=== PATIENT | male | born 1965 | race Caucasian/White ===

== ENCOUNTER 2017-03-27 04:06 | Inpatient (IN) | payer OTHER ==
[2017-03-27] VITALS (7 sets, daily range): BP systolic 101–162; BP diastolic 61–83
[~2017-03-27] VITALS: Ht 195.6 cm; Wt 147.9 kg
[~2017-03-27 04:06] MED LIST: AMLODIPINE BESYL5 MG PO; ASPIR 8181 MG PO; Aspirin PO; BACTROBAN15 GM TOP; CORDARONE200 MG PO; CRESTOR10 MG PO; DOXYCYCLINE HY100 MG PO; FUROSEMIDE40 MG PO; Furosemide PO; GLIMEPIRIDE2 MG; LIPITOR20 MG PO; LISINOPRIL10 MG PO; LOPRESSOR25 MG PO; Lorazepam PO; METOPROLOL TART25 MG PO; METOPROLOL TART50 MG PO; NITRO-BID1 GM TOP; NITROGLYCERIN0.4 MG SL; NITROSTAT0.4 MG SL; PROTONIX40 MG/ML PO; Potassium Chloride PO; SANTYL15 GM TP; TAMSULOSIN HCL0.4 MG PO; XARELTO10 MG PO; Z.0.CLINDAMYCIN HC30; Z.0.CLINDAMYCIN HC30 PO; Z.0.HYDROCHLOROTHIA2; Z.0.LORTAB 7.5-5001 PO; Z.0.SEPTRA DS TABL1 PO
[2017-03-27 04:51] LABS: BASOPHILS % 0.7 % (0.0-1.0); EOSINOPHILS # (AUTO) 0.3 (0.0-0.4); EOSINOPHILS % 5.4 % (0.0-6.0); HEMATOCRIT 33.4 % (38.2-49.6); HEMOGLOBIN 10.5 g/dL (14.0-18.0); LYMPHOCYTES # (AUTO) 0.9 (1.0-3.2); LYMPHOCYTES % 15.8 % (18.0-39.1); MEAN CORPUSCULAR HEMOGLOBIN 25.8 pg (28-32); MEAN CORPUSCULAR HGB CONC 31.4 g/dL (31-35); MEAN CORPUSCULAR VOLUME 82.1 fL (81-99); MONOCYTES # (AUTO) 0.8 (0.2-0.8); MONOCYTES % 15.2 % (4.4-11.3); NEUTROPHILS # (AUTO) 3.4 (2.1-6.9); NEUTROPHILS % 62.4 % (38.7-80.0); PLATELET COUNT 282 x10e3/uL (140-360); RED BLOOD COUNT 4.07 x10e6/uL (4.3-5.7); RED CELL DISTRIBUTION WIDTH 18.8 % (11.7-14.4)
[2017-03-27 05:00] LABS: INR 1.23; PARTIAL THROMBOPLASTIN TIME 32.4 seconds (23.8-35.5); PROTHROMBIN TIME 16.1 seconds (11.9-14.5)
[2017-03-27 05:10] LABS: ALBUMIN 3.7 g/dL (3.5-5.0); ALBUMIN/GLOBULIN RATIO 1.1 (0.8-2.0); ANION GAP 15.5 mmol/L (8-16); CALCIUM 8.5 mg/dL (8.4-10.2); CREATININE, SERUM 2.79 mg/dL (0.72-1.25); MAGNESIUM 2.2 MG/DL (1.3-2.1); POTASSIUM 4.5 mmol/L (3.5-5.1)
[2017-03-27 05:30] LABS: CREATINE KINASE MB 4.7 ng/mL (0.00-5.00); THYROID STIMULATING HORMONE 3.699 uIU/mL (0.350-4.940); TROPONIN I 0.008 ng/mL (0-0.300)
[2017-03-27] MEDS ORDERED: SODIUM CHLORIDE 0.9% 500ML 500 ML IV ONE (06:00)
--- NOTE | 2017-03-27 06:27 | Diagnostic Imaging Report ---
History: Fell in shower Comparison studies:None Technique: Axial images were obtained from the brain, face and cervical spine. Coronal and sagittal reconstructions obtained from the axial data. Intravenous contrast: None Findings: Head CT: Scalp/skull: No abnormalities. No fractures, blastic or lytic lesions. Extra-axial spaces: No masses. No fluid collections. Brain sulci: Appropriate for age. Ventricles: Normal in size and configuration. No hydrocephalus. Parenchyma: No abnormal densities. No masses, hemorrhage, acute or chronic cortical vascular insults. Sellar/suprasellar region: No abnormalities Craniocervical junction: Patent foramen magnum. No Chiari one malformation. Opacification of the bilateral left more than right mastoid air cells. Maxillofacial CT: Soft tissues: No abnormalities.. Bones: No fractures or bony abnormalities. . Orbits: No abnormalities. Paranasal sinuses: Clear. Cervical spine CT: Fractures: None. Soft tissues: No gross abnormalities. Atlantoaxial articulation: Intact. Alignment: Normal lordosis. No scoliosis. Cervicomedullary junction: No abnormalities. The foramen magnum is patent. Vertebrae: No infection or neoplasm. Degenerative changes: Patent canal and foramina. Incidental findings: none. Impression: Head CT: 1. No acute abnormality. 2. Nonspecific opacification of the left more than right mastoid air cells . Facial CT: 1. No acute abnormality. Cervical spine CT: 1. No cervical abnormalities. 2. Cannot exclude ligament, spinal cord and or vascular abnormalities on the basis of this examination. Signed by: DR Arash Logan M.D. on 03/27/2017 6:24 AM
--- NOTE | 2017-03-27 06:48 | Diagnostic Imaging Report ---
EXAMINATION: CHEST SINGLE (PORTABLE) INDICATION: Status post fall, syncope COMPARISON: None FINDINGS: TUBES and LINES: None. LUNGS: Lungs are well inflated. Lungs are clear. There is no evidence of pneumonia or pulmonary edema. PLEURA: No pleural effusion or pneumothorax. HEART AND MEDIASTINUM: The cardiomediastinal silhouette is unremarkable. BONES AND SOFT TISSUES: No acute osseous lesion. Postsurgical changes related to prior resection of the lateral right clavicle. Soft tissues are unremarkable. UPPER ABDOMEN: No free air under the diaphragm. IMPRESSION: No acute thoracic abnormality. Signed by: Dr. Facundo Ward M.D. on 03/27/2017 6:45 AM
--- NOTE | 2017-03-27 06:48 | Diagnostic Imaging Report ---
PELVIS AP 1-2 VIEWS HISTORY: Status post fall, pain COMPARISON: None FINDINGS: Bones: No displaced fracture. Osseous alignment is within normal limits. Joints: The joint spaces are well-maintained. Soft tissues: The soft tissues appear unremarkable. IMPRESSION: No acute radiographic abnormality. Signed by: Dr. Facundo Ward M.D. on 03/27/2017 6:45 AM
--- NOTE | 2017-03-27 06:50 | Diagnostic Imaging Report ---
FEMUR 2 VIEWS MINIMUM LEFT HISTORY: Status post fall, left side pain COMPARISON: None FINDINGS: Bones: No displaced fracture. Osseous alignment is within normal limits. Joints: There are calcifications in the distribution of the menisci compatible with CPPD arthropathy. Soft tissues: Soft tissue calcifications in the left gluteal region and muscular structures of the left thigh. IMPRESSION: 1. CPPD arthropathy of the left knee. 2. No acute osseous abnormalities. Signed by: Dr. Facundo Ward M.D. on 03/27/2017 6:46 AM
[2017-03-27] MEDS ORDERED: SODIUM CHLORIDE 0.9% 1000ML 1,000 ML ONE (07:44)
[2017-03-27] MEDS ORDERED: SODIUM CHLORIDE 0.9% 1000ML 1,000 ML IV ONE (07:45)
[2017-03-27 07:54] LABS: BILIRUBIN,URINE NEGATIVE (NEGATIVE); CLARITY,URINE CLEAR (CLEAR); COLOR,URINE YELLOW (YELLOW); KETONES,URINE NEGATIVE (NEGATIVE); LEUKOCYTE ESTERASE ,URINE NEGATIVE (NEGATIVE); NITRITE,URINE NEGATIVE (NEGATIVE); PROTEIN,URINE DIPSTICK NEGATIVE (NEGATIVE); URINE UROBILINOGEN 0.2 mg/dL (0.2 - 1)
[2017-03-27] MEDS ORDERED: ONDANSETRON HCL INJ 2 MG/ML VIAL IV PRN (08:30)
[2017-03-27] MEDS ORDERED: DEXTROSE 50% SYRINGE 50 ML IV PRN (08:30)
[2017-03-27] MEDS: CEPHALEXIN 500 MG CAP PO SCH ×3 (09:09→21:19)
[2017-03-27] MEDS: FAMOTIDINE 20 MG/2 ML VIAL IV SCH ×2 (09:09→21:19)
[2017-03-27] MEDS: SODIUM CHLORIDE 0.9% 1000ML 1,000 ML IV SCH ×2 (09:09→18:01)
--- NOTE | 2017-03-27 10:05 | History and Physical ---
PRIMARY CARE PHYSICIAN: Dr. Feldman CHIEF COMPLAINT: Near passing out with leg trauma and facial trauma. HISTORY OF PRESENT ILLNESS: This is a 52-year-old man with a history of syncopal episode in September 2016, who underwent echocardiogram and stress test. At that time, he stated that it was negative. Dr. Oviedo assisted in management at that time. Patient has been having problems with tremors and periods of tremulousness. Has been evaluated by Dr. Jackson. Had an in-home 72-hour EEG monitoring. Results of that are still pending. Patient has also been managed by Dr. Gonzales of nephrology. Patient recently had his Bumex doubled in dose due to leg edema. Amlodipine was stopped at that time. Now, the patient had been having tremors per his who is at his bedside now. Last night he got out of bed while still apparently having a vivid dream. Went to the bathroom, fell and injured his left leg on a drawer and hit his face. Was brought into the hospital. He did not pass out at that time. The trauma led to him waking up from this vivid dream per his . Currently, the patient denies any chest pain or shortness of breath. States that he was ruled out for Parkinson disease in the fall by Dr. Jackson. Further workup is still being done to determine the etiology of his intermittent tremors and vivid dreams. His systolic blood pressure has been as low as 80 in the office setting. PAST MEDICAL HISTORY: Chronic kidney disease, stage 3, myocardial infarction without any stent placement, atrial flutter, status post ablation times 2, vivid dreams, hypertension, hyperlipidemia, urinary tract infection, aortic stenosis, mitral valve vegetation with normal white blood cell count, paroxysmal atrial fibrillation, chronic venous stasis dermatitis. PAST SURGICAL HISTORY: Right shoulder times 10, left shoulder times 5, bilateral knee surgery times 2, hand surgery. ALLERGIES: PER ELECTRONIC MEDICAL RECORD. FAMILY HISTORY/SOCIAL HISTORY: Patient is . He has no children. Occasional alcohol. No cigarettes or illicits. MEDICATIONS: Per electronic medical records. REVIEW OF SYSTEMS: Denies any dizziness or chest pain. PHYSICAL EXAMINATION VITAL SIGNS: Temperature 97.8, pulse 68, blood pressure 94/93, respiratory rate 18, and oxygen 100%. GENERAL: A tired-appearing man resting in bed. HEENT: Anicteric. CARDIOVASCULAR: Normal S1 and S2. Appears to be a 2/6 systolic murmur. LUNGS: Good aeration. No wheezing. ABDOMEN: Soft, nontender and nondistended. EXTREMITIES: Left thigh with dressing in place. He has a horizontal wound in the thigh, which has been sutured and dressed. Trace edema. SKIN: Dry. PSYCHIATRIC: Flat affect. NEUROLOGICAL: He is alert and oriented times 3. Moves all extremities. LABS: Reviewed. MEDICATIONS: Reviewed. ASSESSMENT AND PLAN: A 52-year-old man with: 1. Presyncope/hypotension: He received 1 L bolus of saline. May need his diuretics to be reduced at home. Blood pressure was as low as 68/45, and now it has improved to 101/60. Will obtain carotid ultrasound. 2. Vivid dreams: This workup is ongoing. Will need to follow with Dr. Jackson outpatient. In the meantime, will treat him symptomatically here. 3. Acute kidney injury in the setting of chronic kidney disease, stage 3: Rehydrate the patient and reassess. Reassess labs later today. Will consult Dr. Gonzales of nephrology. 4. Hyponatremia: May be the etiology of some of his symptoms today. He has been rehydrated. Will reassess labs later today. 5. Elevated AST: Patient admits to some alcohol use, but not much. Alcohol use may need to be re-evaluated. 6. Elevated CPK representing mild acute rhabdomyolysis: Rehydrate and will reassess tomorrow. 7. Left leg wound: This has been sutured and dressed. Continue local wound care. 8. Physical deconditioning: Will get physical therapy on board. 9. Paroxysmal atrial fibrillation: He remains on amiodarone and beta blockade. Will hold the beta tate for now. Will hold amiodarone for now until his blood pressure improves. Will resume Xarelto tomorrow. Will obtain lipid panel. 10. Prophylaxis: Use sequential compression devices. Will resume Xarelto tomorrow. Use Pepcid. 11. Disposition: Physical therapy consultation. Job#: [id number] [place]
[2017-03-27] MEDS: INSULIN REGULAR, HUMAN 100 UNIT/1 ML 3ML VIAL SQ SCH ×3 (11:30→20:51)
--- NOTE | 2017-03-27 13:51 | Consultation ---
DATE OF CONSULTATION: March 27, 2017 CARDIOLOGY CONSULTATION REQUESTING PHYSICIAN: Dr. Maya. REASON FOR CONSULT: History of fall. HISTORY OF PRESENTING ILLNESS: Mr. Avila is a 52-year-old gentleman with past medical history as listed below, apparently was walking from his bedroom to the bathroom at night when he suddenly fell down at the knob of a door and, so, decided to come to the hospital. He states he did not lose total consciousness. He states he has been sleepwalking quite frequently. He apparently cut his left thigh and hit his head. There was no chest pain, shortness of breath or palpitation before the episode or right after the episode. There was no seizure activity. Reportedly his blood pressure has been running low recently, and his renal physician has stopped one of his medications. REVIEW OF SYMPTOMS CONSTITUTIONAL: Has some fatigue and weakness. HEENT: Has headache. No blurring of vision, seizures. Questionable syncope. CARDIOVASCULAR: No chest pain. Gets exertional dyspnea. No orthopnea or PND. RESPIRATORY: No cough, fever or expectoration. GI: No abdominal pain, vomiting, diarrhea. : No dysuria, frequency, incontinence. ALLERGIES: SEE LIST. MEDICATIONS: See list. PAST MEDICAL HISTORY 1. History of hypertension. 2. History of MS. Has had cardiac catheterization. No significant stenosis. 3. History of CKD. 4. History of hyperlipidemia. 5. History of atrial fibrillation. Has undergone ablation by Dr. Moctezuma. 6. History of essential tremor. SOCIAL HISTORY: Does not smoke or drink. FAMILY HISTORY: Noncontributory. PHYSICAL EXAMINATION GENERAL: Obese gentleman, alert, oriented, not in any obvious distress. VITAL SIGNS: Heart rate is 77. Blood pressure 117/69. Respiratory rate 16. Temperature is 96.9. HEENT: Atraumatic. NECK: No JVD, bruit, thyromegaly, lymphadenopathy. CARDIOVASCULAR: First and second heart sounds heard. No murmurs, rubs or gallops were appreciated. CHEST: Decreased air entry at the bases. No adventitious sounds appreciated. ABDOMINAL: Obese, nontender. EXTREMITIES: No edema. LABS Chest x-ray: No acute changes. X-ray of pelvis and left femur: Negative. CT face, spine and head: Negative. WBC is 5.5, hemoglobin 10.5, hematocrit 33.4. Sodium 124, chloride 92, bicarb 21, creatinine is 2.7. CK is 543. EKG shows sinus rhythm at 68 beats per minute, normal axis, incomplete left bundle branch block, 1st-degree AV block. IMPRESSION 1. History of fall, questionable syncope. 1. History of hypotension. 2. History of atrial fibrillation, has undergone ablation. 3. Chronic kidney disease. 4. History of hyperlipidemia. 5. History of essential tremor. 6. Elevated creatine phosphokinase, probably secondary to muscle injury. PLAN 1. Patient reportedly sleepwalks, also his blood pressure has been running low. Possible that patient could have had orthostatic hypotensive episode. 2. Will start him on low-dose midodrine. 3. Get echocardiogram to assess LV function and valvular function. 4. Carotid Doppler to rule out significant stenosis. 5. Hold off on diuretics for now. 6. Further cardiac workup depending on clinical course. I have discussed my impression and plan of management with the patient, and he understands it. As always, appreciate and thank you very much for your referrals. Job#: [id number] [place]
[2017-03-27] MEDS: FAMOTIDINE 20 MG TAB PO SCH (16:28)
[2017-03-27 19:11] LABS: ALBUMIN 3.7 g/dL (3.5-5.0); ALBUMIN/GLOBULIN RATIO 1.2 (0.8-2.0); ANION GAP 14.2 mmol/L (8-16); CALCIUM 8.3 mg/dL (8.4-10.2); CREATININE, SERUM 2.64 mg/dL (0.72-1.25); POTASSIUM 4.2 mmol/L (3.5-5.1)
[2017-03-27 19:17] LABS: CREATINE KINASE MB 4.7 ng/mL (0.00-5.00); TROPONIN I 0.007 ng/mL (0-0.300)
[2017-03-27] MEDS: ZOLPIDEM TARTRATE 5 MG TAB PO PRN (21:19)
[2017-03-27] MEDS: SIMVASTATIN 20 MG TAB PO SCH (21:19)
[2017-03-28] VITALS (12 sets, daily range): BP systolic 110–159; BP diastolic 58–85
[2017-03-28] MEDS: CEPHALEXIN 500 MG CAP PO SCH ×3 (05:16→21:17)
[2017-03-28 07:07] LABS: BASOPHILS % 0.4 % (0.0-1.0); EOSINOPHILS # (AUTO) 0.2 (0.0-0.4); HEMATOCRIT 35.3 % (38.2-49.6); LYMPHOCYTES # (AUTO) 0.7 (1.0-3.2); LYMPHOCYTES % 15.3 % (18.0-39.1); MEAN CORPUSCULAR HEMOGLOBIN 25.8 pg (28-32); MEAN CORPUSCULAR HGB CONC 31.2 g/dL (31-35); MEAN CORPUSCULAR VOLUME 82.9 fL (81-99); MONOCYTES # (AUTO) 0.7 (0.2-0.8); MONOCYTES % 15.1 % (4.4-11.3); NEUTROPHILS % 63.8 % (38.7-80.0); PLATELET COUNT 295 x10e3/uL (140-360); RED BLOOD COUNT 4.26 x10e6/uL (4.3-5.7)
[2017-03-28 07:38] LABS: ALBUMIN 3.6 g/dL (3.5-5.0); ALBUMIN/GLOBULIN RATIO 1.1 (0.8-2.0); ANION GAP 11.2 mmol/L (8-16); CALCIUM 8.6 mg/dL (8.4-10.2); CHOL/HDL RATIO 2.2 (3.9-4.7); CREATININE, SERUM 2.25 mg/dL (0.72-1.25); POTASSIUM 4.2 mmol/L (3.5-5.1)
[2017-03-28 07:44] LABS: CREATINE KINASE MB 4.2 ng/mL (0.00-5.00); TROPONIN I 0.013 ng/mL (0-0.300)
[2017-03-28] MEDS: SODIUM CHLORIDE 0.9% 1000ML 1,000 ML IV SCH (07:48)
[2017-03-28 08:03] LABS: BLOOD UREA NITROGEN 21 mg/dL (7-26); GLUCOSE 99 mg/dL (74-118); OSMOLALITY,SERUM 268 mOsm/kg (278-305); SODIUM 132 mmol/L (136-145)
[2017-03-28] MEDS: FAMOTIDINE 20 MG/2 ML VIAL IV SCH (08:25)
[2017-03-28] MEDS: FAMOTIDINE 20 MG TAB PO SCH ×2 (08:32→16:29)
[2017-03-28] MEDS: ACETAMINOPHEN/CODEINE 300MG - 30MG TAB PO PRN ×4 (08:32→20:26)
--- NOTE | 2017-03-28 11:00 | Diagnostic Imaging Report ---
PROCEDURE:US RETROPERITONEAL ( KIDNEY ). COMPARISON:None. INDICATIONS:CKD TECHNIQUE: Santiago-scale and color sonographic images of the bilateral kidneys and bladder where obtained in transverse and longitudinal planes. FINDINGS: RIGHT KIDNEY: 10.8 cm in length, cortical thickness 2.3 cm Cysts: None Solid masses: None Stones: None Hydronephrosis: None Echogenicity: Normal renal cortical echogenicity. LEFT KIDNEY: 11.8 cm in length, cortical thickness 2.1 cm Cysts: None Solid masses: None Stones: None Hydronephrosis: None Echogenicity: Normal renal cortical echogenicity. Bladder: Unremarkable. Right and left ureteral jets are identified. Prostate: 2.5 x 2.6 x 3.4 cm. Estimated volume 11.8 cc Incidental note of a small splenule adjacent to the spleen, measuring 1.8 cm in diameter. CONCLUSION: Unremarkable sonographic appearance of the kidneys. Dictated by: Gary Dye M.D. on 03/28/2017 at 11:09 Electronically approved by: Gary Dye M.D. on 03/28/2017 at 11:09
--- NOTE | 2017-03-28 14:33 | Consultation ---
DATE OF CONSULTATION: March 28, 2017 ATTENDING PHYSICIAN: Jace Maya MD REASON FOR CONSULTATION: Acute kidney injury. Thank you very much for allowing me to participate in Mr. Avila' care. This is a 52-year-old male with history of CKD-3, who also has some issues with right heart failure, possibly venous stasis. More recently was told to cut down his amlodipine and increase his diuretics. Apparently, he came in after possibly falling sleepwalking getting a laceration on his thigh. It has also been noted that his blood pressure has been lower lately. He is feeling better now. He got some IV fluids here. Creatinine was 2.6, down to 2.3. Without diuresis, his creatinine tends to run around 1.7 to 1.8. PAST HISTORY 1. CKD-3. 2. Chronic edema. 3. Myocardial infarction. 4. History of atrial flutter. 5. Hypertension. 6. Aortic stenosis in the past. 7. Possible venous insufficiency. HOME MEDICATIONS: Please see list. Currently off his amlodipine and Bumex. ALLERGIES: Please see list. FAMILY HISTORY: No kidney problems. REVIEW OF SYSTEMS CONSTITUTIONAL: Currently feeling better. Denied fever or chills. CARDIAC: Denying angina, syncope, palpitations. GI: Denying nausea or vomiting. SKIN: A few lacerations on the leg. NEURO: Denying headache or seizures at this point. He was sleepwalking earlier. REST OF REVIEW: Negative. PHYSICAL EXAMINATION GENERAL: Sitting up in no distress. VITALS: Temperature 96.6, pulse 87, blood pressure 114/58. O2 sat is 98%. HEENT: Grossly atraumatic. NECK: No JVD. CHEST: Clear. Bilateral breath sounds are equal. CARDIAC: Normal heart tones. At this point, sounds regular. EXTREMITIES: Trace edema. SKIN: A few lacerations. The left leg is covered in a bandage. NEURO: Alert and appropriate. LABS: Creatinine 2.3, sodium 133, serum CO2 26, BUN 21. UA showed bland urine. Hemoglobin 11. ASSESSMENT 1. Acute kidney injury, mostly likely hemodynamic in nature from diuresis. 2. Tendency to fluid overload. 3. Probable intravascular volume depletion. PLAN 1. Keep salt and water restricted. Currently, I think he is getting close to euvolemic as far as vacular space goes. Will stop the IV fluids. Gradually introduce Lasix as they are concerned the Bumex even at its lowest dose may be a bit much for him. 2. Keep salt and water restricted. This is probably the most important measure that he can take. We will request cardiology to look at his venous system. 3. Avoid NSAIDs and other nephrotoxins. 4. Keep fluid restricted. Thank you for allowing us to participate in Mr. Avila' care. Job#: [id number]
[2017-03-28] MEDS: AMIODARONE HCL 200 MG TAB PO SCH (16:29)
[2017-03-28] MEDS ORDERED: RIVAROXABAN 20 MG TABLET PO SCH (17:00)
[2017-03-28] MEDS ORDERED: RIVAROXABAN 10 MG TABLET PO SCH (17:00)
[2017-03-28] MEDS: SIMVASTATIN 20 MG TAB PO SCH (20:20)
[2017-03-28] MEDS: ZOLPIDEM TARTRATE 5 MG TAB PO PRN (23:17)
[2017-03-29 04:00] VITALS: BP_SYST 121; BP_SYST 127; BP_SYST 145; BP_DIAS 72; BP_DIAS 76; BP_DIAS 83
[2017-03-29] MEDS: ACETAMINOPHEN/CODEINE 300MG - 30MG TAB PO PRN ×2 (04:36→11:07)
[2017-03-29] MEDS: CEPHALEXIN 500 MG CAP PO SCH (05:38)
[2017-03-29] MEDS ORDERED: FAMOTIDINE20 MG PO (06:34)
[2017-03-29] MEDS ORDERED: KEFLEX500 MG PO (06:34)
[2017-03-29 06:58] LABS: BASOPHILS % 0.8 % (0.0-1.0); EOSINOPHILS # (AUTO) 0.3 (0.0-0.4); EOSINOPHILS % 5.8 % (0.0-6.0); HEMATOCRIT 36.2 % (38.2-49.6); HEMOGLOBIN 11.3 g/dL (14.0-18.0); LYMPHOCYTES # (AUTO) 0.8 (1.0-3.2); LYMPHOCYTES % 15.8 % (18.0-39.1); MEAN CORPUSCULAR HGB CONC 31.2 g/dL (31-35); MEAN CORPUSCULAR VOLUME 83.2 fL (81-99); MONOCYTES # (AUTO) 0.8 (0.2-0.8); MONOCYTES % 16.2 % (4.4-11.3); NEUTROPHILS # (AUTO) 2.9 (2.1-6.9); PLATELET COUNT 294 x10e3/uL (140-360); RED BLOOD COUNT 4.35 x10e6/uL (4.3-5.7); RED CELL DISTRIBUTION WIDTH 19.2 % (11.7-14.4)
[2017-03-29 07:17] LABS: ALBUMIN 3.7 g/dL (3.5-5.0); ANION GAP 12.3 mmol/L (8-16); CALCIUM 8.8 mg/dL (8.4-10.2); CREATININE, SERUM 1.91 mg/dL (0.72-1.25); POTASSIUM 4.3 mmol/L (3.5-5.1)
[2017-03-29 08:03] VITALS: BP 160/83
[2017-03-29] MEDS: AMIODARONE HCL 200 MG TAB PO SCH (08:06)
[2017-03-29] MEDS: FAMOTIDINE 20 MG TAB PO SCH (08:06)
--- NOTE | 2017-03-29 08:17 | Progress Note ---
DATE: March 28, 2017 TIME: 7:30 a.m. OVERNIGHT: Feeling better. REVIEW OF SYSTEMS: Denies any dizziness. PHYSICAL EXAMINATION VITAL SIGNS: Reviewed. GENERAL: A tired-appearing man resting in bed. HEENT: Anicteric. CARDIOVASCULAR: Normal S1 and S2. LUNGS: Moderate breath sounds. ABDOMEN: Soft, nontender and nondistended. EXTREMITIES: He has left thigh with dressing in place. SKIN: Dry. PSYCHIATRIC: Flat affect. NEUROLOGICAL: Alert and oriented times 3. LABS: Reviewed. MEDICATIONS: Reviewed. ASSESSMENT AND PLAN: A 52-year-old man with: 1. Presyncope/hypotension: He received fluids. Beta tate has been stopped. Diuretics have been stopped. 2. Vivid dreams: Need to follow up outpatient with Dr. Jackson. 3. Acute kidney injury in the setting of chronic kidney disease, stage 3: Retest and re-evaluate. 4. Hyponatremia: Improving. 5. Elevated AST. 6. Elevated CPK likely due to acute rhabdomyolysis. 7. Acute rhabdomyolysis. 8. Left leg wound: Status post suture. Local wound care. 9. Physical deconditioning: Physical therapy. 10. Paroxysmal atrial fibrillation: Amiodarone. Beta tate has been stopped. 11. Prophylaxis: Sequential compression devices and Xarelto. 12. Disposition: Discharge planning. Job#: [id number] [place]
--- NOTE | 2017-03-29 08:27 | Discharge Summary ---
PRINCIPAL DIAGNOSES 1. Presyncope. 2. Hypotension secondary to beta tate and diuretics. 3. Vivid dreams. 4. Acute kidney injury in the setting of chronic kidney disease, stage 3. 5. Hyponatremia. 6. Elevated AST. 7. Elevated CPK with acute rhabdomyolysis. 8. Left leg wound, status post suturing and local wound care. 9. Physical deconditioning. 10. Paroxysmal atrial fibrillation. SECONDARY DIAGNOSIS: Paroxysmal atrial fibrillation. CHIEF COMPLAINT: Near passing out and injury to his leg. HISTORY OF PRESENT ILLNESS: A 52-year-old man who almost passed out. Refer to the H and P for further details. HOSPITAL COURSE: Patient had presyncopal event with hypotension. His beta tate has been stopped. His diuretics have been stopped. He had acute kidney injury in the setting of chronic kidney disease, stage 3. He received fluid boluses. Diuretics have been stopped. He had hyponatremia, which has improved. He had elevated AST and elevated CPK with acute rhabdomyolysis. Has been improving. Left leg wound secondary to injury in his bathroom. This has been sutured, and he has pain medications. He had local wound care. For physical deconditioning, he received physical therapy. Paroxysmal atrial fibrillation and he continues to receive amiodarone. Currently, appropriate for discharge and follow up. DISCHARGE MEDICATIONS: Per electronic medical records. FOLLOWUP 1. Primary care doctor in 1 week. 2. Follow up with Dr. Grove in 1 week. 3. Follow up with Dr. Oviedo in 2 weeks. CONDITION ON DISCHARGE: Stable and improving. DISCHARGE LOCATION: Home. MONICA RIOS MD Job#: [id number] [place]
[2017-03-29 08:32] VITALS: BP 160/83
[2017-03-29] MEDS ORDERED: TYLENOL WITH C1 EACH PO (11:34)
[2017-03-29] MEDS ORDERED: METOPROLOL TART50 MG PO (11:34)
[2017-03-29 12:00] VITALS: BP 141/88
--- NOTE | 2017-03-29 13:46 | Progress Note ---
DATE: March 29, 2017 NEPHROLOGY PROGRESS NOTE SUBJECTIVE: Feels okay. Minimal swelling. OBJECTIVE VITAL SIGNS: Temperature is 95.4, pulse 86, blood pressure 141/88. CHEST: Clear. EXTREMITIES: Trace edema. ABDOMEN: Benign. NEURO: Alert, appropriate. LABS: Show creatinine 1.9, which is close to his baseline. Serum CO2 27. Sodium was 134. ASSESSMENT: History of fluid overload, perhaps overdiuresed leading to acute kidney injury and underlying chronic kidney disease stage 3, presumed nephrosclerosis. PLAN: Limit salt strictly at home, limit fluid intake strictly at home. Start checking daily weights. There is some concern that the bumetanide might have been too strong of a diuretic for him even at its lowest dose. Will try furosemide 20 mg once a day. Outpatient prescription is sent. Check back with the renal office for labs in about 3 to 4 weeks. Call us if he tends to need the Lasix more than 40 mg a day. Will follow along. Sincerely, Job#: [id number] [place]
== END 2017-03-29 13:05 | disposition home or self-care (01) | DRG 312 ==
LOC: ER 04:06 → ERHOLD 08:53 → MED/SURG 09:15
PROVIDERS: ADMIT Internal Medicine; ATTEND Internal Medicine
PROC: 0JQM3ZZ Repair Left Upper Leg Subcutaneous Tissue and Fascia, Percutaneous Approach (ICD-10-PCS; principal; 2017-03-27)
DX: I95.1 Orthostatic hypotension (principal); N17.9 Acute kidney failure, unspecified; E87.1 Hypo-osmolality and hyponatremia; E87.70 Fluid overload, unspecified; M62.82 Rhabdomyolysis; I13.10 Hypertensive heart and chronic kidney disease without heart failure, with stage 1 through stage 4 chronic kidney disease, or unspecified chronic kidney disease; N18.3 Chronic kidney disease, stage 3 (moderate); E86.0 Dehydration; I48.0 Paroxysmal atrial fibrillation; R41.0 Disorientation, unspecified; I25.10 Atherosclerotic heart disease of native coronary artery without angina pectoris; S71.112A Laceration without foreign body, left thigh, initial encounter; W01.0XXA Fall on same level from slipping, tripping and stumbling without subsequent striking against object, initial encounter; Y93.89 Activity, other specified; G25.0 Essential tremor; Y92.012 Bathroom of single-family (private) house as the place of occurrence of the external cause
CPT/HCPCS: 36415; 70450; 70486; 71045; 72125; 72170; 76770; 80053; 80061; 81001; 82140; 82550; 82553; 82947; 83605; 83735; 83880; 84295; 84443; 84484; 84520; 85025; 85610; 85730; 87040; 87086; 87400; 93005; 93880; 96360; 99284; J7030; J7040

== ENCOUNTER → 2017-10-28 | Outpatient (CLI) | payer OTHER ==
[~2017-10-28] MED LIST changes: +FAMOTIDINE20 MG PO; +KEFLEX500 MG PO; +TYLENOL WITH C1 EACH PO
== END ==
LOC: WCC 15:37
PROVIDERS: ATTEND Internal Medicine Infectious Disease
DX: S81.802A Unspecified open wound, left lower leg, initial encounter (principal); Y83.4 Other reconstructive surgery as the cause of abnormal reaction of the patient, or of later complication, without mention of misadventure at the time of the procedure; I87.323 Chronic venous hypertension (idiopathic) with inflammation of bilateral lower extremity; I87.2 Venous insufficiency (chronic) (peripheral); I10 Essential (primary) hypertension; I50.9 Heart failure, unspecified; E78.00 Pure hypercholesterolemia, unspecified; I48.92 Unspecified atrial flutter; Z74.01 Bed confinement status

== ENCOUNTER → 2018-02-16 | Outpatient (CLI) | payer OTHER ==
[~2018-02-16] MED LIST changes: +LIDOCAINE VISC 2% SOLN 15 ML UDC ONE; +MINERAL OIL/PETROLAT/GLYCERI 6OZ BTL ONE
== END ==
LOC: WCC 15:50
PROVIDERS: ATTEND Family Medicine Adult Medicine
DX: I87.311 Chronic venous hypertension (idiopathic) with ulcer of right lower extremity (principal); Y83.4 Other reconstructive surgery as the cause of abnormal reaction of the patient, or of later complication, without mention of misadventure at the time of the procedure; L97.829 Non-pressure chronic ulcer of other part of left lower leg with unspecified severity; L97.811 Non-pressure chronic ulcer of other part of right lower leg limited to breakdown of skin; L97.819 Non-pressure chronic ulcer of other part of right lower leg with unspecified severity; I87.332 Chronic venous hypertension (idiopathic) with ulcer and inflammation of left lower extremity; I87.331 Chronic venous hypertension (idiopathic) with ulcer and inflammation of right lower extremity; I87.323 Chronic venous hypertension (idiopathic) with inflammation of bilateral lower extremity; S81.802A Unspecified open wound, left lower leg, initial encounter; S80.821A Blister (nonthermal), right lower leg, initial encounter; R60.9 Edema, unspecified; I87.2 Venous insufficiency (chronic) (peripheral); G90.09 Other idiopathic peripheral autonomic neuropathy; I10 Essential (primary) hypertension; I48.92 Unspecified atrial flutter; I50.9 Heart failure, unspecified; E78.00 Pure hypercholesterolemia, unspecified; I05.8 Other rheumatic mitral valve diseases; Z74.01 Bed confinement status

== ENCOUNTER → 2018-02-21 | Outpatient (CLI) | payer OTHER ==
[~2018-02-21] MED LIST changes: -LIDOCAINE VISC 2% SOLN 15 ML UDC ONE; -MINERAL OIL/PETROLAT/GLYCERI 6OZ BTL ONE
== END ==
LOC: WCC 02:00
PROVIDERS: ATTEND Family Medicine Adult Medicine
DX: I87.311 Chronic venous hypertension (idiopathic) with ulcer of right lower extremity (principal); I87.331 Chronic venous hypertension (idiopathic) with ulcer and inflammation of right lower extremity; I87.332 Chronic venous hypertension (idiopathic) with ulcer and inflammation of left lower extremity; I87.323 Chronic venous hypertension (idiopathic) with inflammation of bilateral lower extremity; L97.821 Non-pressure chronic ulcer of other part of left lower leg limited to breakdown of skin; L97.829 Non-pressure chronic ulcer of other part of left lower leg with unspecified severity; L97.811 Non-pressure chronic ulcer of other part of right lower leg limited to breakdown of skin; L97.819 Non-pressure chronic ulcer of other part of right lower leg with unspecified severity; I87.2 Venous insufficiency (chronic) (peripheral); S80.821A Blister (nonthermal), right lower leg, initial encounter; G90.09 Other idiopathic peripheral autonomic neuropathy; L84 Corns and callosities; R60.9 Edema, unspecified; R23.4 Changes in skin texture; E78.00 Pure hypercholesterolemia, unspecified; I05.8 Other rheumatic mitral valve diseases; I10 Essential (primary) hypertension; I48.92 Unspecified atrial flutter; I50.9 Heart failure, unspecified; Y83.4 Other reconstructive surgery as the cause of abnormal reaction of the patient, or of later complication, without mention of misadventure at the time of the procedure; Z74.01 Bed confinement status

== ENCOUNTER → 2018-07-14 | Outpatient (CLI) | payer OTHER ==
[~2018-07-14] MED LIST changes: +LIDOCAINE VISC 2% SOLN 15 ML UDC ONE; +MINERAL OIL/PETROLAT/GLYCERI 6OZ BTL ONE; +MUPIROCIN 2% OINT 22 GM TUBE ONE
== END ==
LOC: WCC 14:17
PROVIDERS: ATTEND Internal Medicine Infectious Disease
DX: I87.331 Chronic venous hypertension (idiopathic) with ulcer and inflammation of right lower extremity (principal); L97.811 Non-pressure chronic ulcer of other part of right lower leg limited to breakdown of skin; I87.332 Chronic venous hypertension (idiopathic) with ulcer and inflammation of left lower extremity; L97.821 Non-pressure chronic ulcer of other part of left lower leg limited to breakdown of skin; R60.9 Edema, unspecified; E78.00 Pure hypercholesterolemia, unspecified; G90.09 Other idiopathic peripheral autonomic neuropathy; I05.8 Other rheumatic mitral valve diseases; I10 Essential (primary) hypertension; I48.92 Unspecified atrial flutter; I50.9 Heart failure, unspecified; I87.2 Venous insufficiency (chronic) (peripheral); I87.311 Chronic venous hypertension (idiopathic) with ulcer of right lower extremity; L97.819 Non-pressure chronic ulcer of other part of right lower leg with unspecified severity; I87.323 Chronic venous hypertension (idiopathic) with inflammation of bilateral lower extremity; L97.829 Non-pressure chronic ulcer of other part of left lower leg with unspecified severity; L84 Corns and callosities; R23.4 Changes in skin texture; S80.821A Blister (nonthermal), right lower leg, initial encounter; Y83.4 Other reconstructive surgery as the cause of abnormal reaction of the patient, or of later complication, without mention of misadventure at the time of the procedure; Z74.01 Bed confinement status

== ENCOUNTER → 2018-07-17 | Outpatient (CLI) | payer OTHER ==
[~2018-07-17] MED LIST changes: -LIDOCAINE VISC 2% SOLN 15 ML UDC ONE; -MINERAL OIL/PETROLAT/GLYCERI 6OZ BTL ONE; -MUPIROCIN 2% OINT 22 GM TUBE ONE
== END ==
LOC: WCC 14:15
PROVIDERS: ATTEND Internal Medicine Infectious Disease
DX: I87.331 Chronic venous hypertension (idiopathic) with ulcer and inflammation of right lower extremity (principal); I87.332 Chronic venous hypertension (idiopathic) with ulcer and inflammation of left lower extremity; I87.323 Chronic venous hypertension (idiopathic) with inflammation of bilateral lower extremity; L97.821 Non-pressure chronic ulcer of other part of left lower leg limited to breakdown of skin; L97.829 Non-pressure chronic ulcer of other part of left lower leg with unspecified severity; L97.811 Non-pressure chronic ulcer of other part of right lower leg limited to breakdown of skin; S80.821A Blister (nonthermal), right lower leg, initial encounter; Y83.4 Other reconstructive surgery as the cause of abnormal reaction of the patient, or of later complication, without mention of misadventure at the time of the procedure; R60.9 Edema, unspecified; I87.2 Venous insufficiency (chronic) (peripheral); R23.4 Changes in skin texture; I10 Essential (primary) hypertension; E78.00 Pure hypercholesterolemia, unspecified; G90.09 Other idiopathic peripheral autonomic neuropathy; I05.8 Other rheumatic mitral valve diseases; I48.92 Unspecified atrial flutter; I50.9 Heart failure, unspecified; Z74.01 Bed confinement status

== ENCOUNTER → 2018-07-19 | Outpatient (CLI) | payer OTHER | LOC: WCC 12:14 | PROVIDERS: ATTEND Internal Medicine Infectious Disease | DX: I87.331 Chronic venous hypertension (idiopathic) with ulcer and inflammation of right lower extremity (principal); Y83.4 Other reconstructive surgery as the cause of abnormal reaction of the patient, or of later complication, without mention of misadventure at the time of the procedure; I87.332 Chronic venous hypertension (idiopathic) with ulcer and inflammation of left lower extremity; L97.821 Non-pressure chronic ulcer of other part of left lower leg limited to breakdown of skin; L97.829 Non-pressure chronic ulcer of other part of left lower leg with unspecified severity; L97.811 Non-pressure chronic ulcer of other part of right lower leg limited to breakdown of skin; I87.2 Venous insufficiency (chronic) (peripheral); S80.821A Blister (nonthermal), right lower leg, initial encounter; R23.4 Changes in skin texture; R60.9 Edema, unspecified; G90.09 Other idiopathic peripheral autonomic neuropathy; I05.8 Other rheumatic mitral valve diseases; I10 Essential (primary) hypertension; I48.92 Unspecified atrial flutter; I50.9 Heart failure, unspecified; E78.00 Pure hypercholesterolemia, unspecified; Z74.01 Bed confinement status ==

== ENCOUNTER → 2018-07-28 | Outpatient (CLI) | payer OTHER | LOC: WCC 09:56 | PROVIDERS: ATTEND Internal Medicine Infectious Disease | DX: I87.331 Chronic venous hypertension (idiopathic) with ulcer and inflammation of right lower extremity (principal); I87.332 Chronic venous hypertension (idiopathic) with ulcer and inflammation of left lower extremity; I87.323 Chronic venous hypertension (idiopathic) with inflammation of bilateral lower extremity; L97.821 Non-pressure chronic ulcer of other part of left lower leg limited to breakdown of skin; L97.829 Non-pressure chronic ulcer of other part of left lower leg with unspecified severity; L97.811 Non-pressure chronic ulcer of other part of right lower leg limited to breakdown of skin; Y83.4 Other reconstructive surgery as the cause of abnormal reaction of the patient, or of later complication, without mention of misadventure at the time of the procedure; S80.821A Blister (nonthermal), right lower leg, initial encounter; R60.9 Edema, unspecified; I87.2 Venous insufficiency (chronic) (peripheral); R23.4 Changes in skin texture; I10 Essential (primary) hypertension; E78.00 Pure hypercholesterolemia, unspecified; G90.09 Other idiopathic peripheral autonomic neuropathy; I05.8 Other rheumatic mitral valve diseases; I48.92 Unspecified atrial flutter; I50.9 Heart failure, unspecified; Z74.01 Bed confinement status ==

== ENCOUNTER → 2018-08-11 | Outpatient (CLI) | payer MEDICARE, OTHER ==
[~2018-08-11] MED LIST changes: +COLLAGENASE OINTMENT 30 GM TUBE ONE; +LIDOCAINE VISC 2% SOLN 15 ML UDC ONE; +MUPIROCIN 2% OINT 22 GM TUBE ONE
== END ==
LOC: WCC 13:59
PROVIDERS: ATTEND Internal Medicine Infectious Disease
DX: I87.331 Chronic venous hypertension (idiopathic) with ulcer and inflammation of right lower extremity (principal); L97.821 Non-pressure chronic ulcer of other part of left lower leg limited to breakdown of skin; L97.829 Non-pressure chronic ulcer of other part of left lower leg with unspecified severity; L97.811 Non-pressure chronic ulcer of other part of right lower leg limited to breakdown of skin; I87.332 Chronic venous hypertension (idiopathic) with ulcer and inflammation of left lower extremity; I87.323 Chronic venous hypertension (idiopathic) with inflammation of bilateral lower extremity; I87.2 Venous insufficiency (chronic) (peripheral); R60.9 Edema, unspecified; R23.4 Changes in skin texture; S80.821A Blister (nonthermal), right lower leg, initial encounter; E78.00 Pure hypercholesterolemia, unspecified; G90.09 Other idiopathic peripheral autonomic neuropathy; I05.8 Other rheumatic mitral valve diseases; I10 Essential (primary) hypertension; I48.92 Unspecified atrial flutter; I50.9 Heart failure, unspecified; Y83.4 Other reconstructive surgery as the cause of abnormal reaction of the patient, or of later complication, without mention of misadventure at the time of the procedure; Z74.01 Bed confinement status

== ENCOUNTER → 2018-09-01 | Outpatient (CLI) | payer MEDICARE, OTHER ==
[~2018-09-01] MED LIST changes: -COLLAGENASE OINTMENT 30 GM TUBE ONE; -LIDOCAINE VISC 2% SOLN 15 ML UDC ONE; -MUPIROCIN 2% OINT 22 GM TUBE ONE
== END ==
LOC: WCC 11:49
PROVIDERS: ATTEND Internal Medicine Infectious Disease
DX: I87.312 Chronic venous hypertension (idiopathic) with ulcer of left lower extremity (principal); I87.332 Chronic venous hypertension (idiopathic) with ulcer and inflammation of left lower extremity; I87.331 Chronic venous hypertension (idiopathic) with ulcer and inflammation of right lower extremity; I87.323 Chronic venous hypertension (idiopathic) with inflammation of bilateral lower extremity; L97.828 Non-pressure chronic ulcer of other part of left lower leg with other specified severity; L97.821 Non-pressure chronic ulcer of other part of left lower leg limited to breakdown of skin; L97.829 Non-pressure chronic ulcer of other part of left lower leg with unspecified severity; L97.811 Non-pressure chronic ulcer of other part of right lower leg limited to breakdown of skin; L97.819 Non-pressure chronic ulcer of other part of right lower leg with unspecified severity; S80.821A Blister (nonthermal), right lower leg, initial encounter; R60.9 Edema, unspecified; I87.2 Venous insufficiency (chronic) (peripheral); R23.4 Changes in skin texture; G90.09 Other idiopathic peripheral autonomic neuropathy; I10 Essential (primary) hypertension; E78.00 Pure hypercholesterolemia, unspecified; I05.8 Other rheumatic mitral valve diseases; I48.92 Unspecified atrial flutter; I50.9 Heart failure, unspecified; Y83.4 Other reconstructive surgery as the cause of abnormal reaction of the patient, or of later complication, without mention of misadventure at the time of the procedure; Z74.01 Bed confinement status

== ENCOUNTER 2018-11-03 11:48 | Outpatient (RCR) | payer MEDICARE, OTHER ==
[~2018-11-03 11:48] MED LIST changes: +COLLAGENASE OINTMENT 30 GM TUBE ONE; +MINERAL OIL/PETROLAT/GLYCERI 6OZ BTL ONE; +MUPIROCIN 2% OINT 22 GM TUBE ONE
[2018-11-03] MEDS ORDERED: AMMONIUM LACTATE 12% LOTION 225GM BTL ONE (18:34)
[2018-11-03] MEDS ORDERED: LIDOCAINE/PRILOCAINE 2.5-2.5% KIT ONE (18:34)
== END 2018-11-04 ==
LOC: WCC 11:48
PROVIDERS: ATTEND Internal Medicine Infectious Disease
DX: I87.311 Chronic venous hypertension (idiopathic) with ulcer of right lower extremity (principal); I87.331 Chronic venous hypertension (idiopathic) with ulcer and inflammation of right lower extremity; I87.312 Chronic venous hypertension (idiopathic) with ulcer of left lower extremity; I87.332 Chronic venous hypertension (idiopathic) with ulcer and inflammation of left lower extremity; L97.829 Non-pressure chronic ulcer of other part of left lower leg with unspecified severity; L97.811 Non-pressure chronic ulcer of other part of right lower leg limited to breakdown of skin; L97.819 Non-pressure chronic ulcer of other part of right lower leg with unspecified severity; R60.9 Edema, unspecified; S80.821A Blister (nonthermal), right lower leg, initial encounter; I10 Essential (primary) hypertension; G90.09 Other idiopathic peripheral autonomic neuropathy; I05.8 Other rheumatic mitral valve diseases; I48.92 Unspecified atrial flutter

== ENCOUNTER 2019-05-01 11:01 | Outpatient (RCR) | payer MEDICARE, OTHER ==
[~2019-05-01 11:01] MED LIST changes: -COLLAGENASE OINTMENT 30 GM TUBE ONE; -MINERAL OIL/PETROLAT/GLYCERI 6OZ BTL ONE; -MUPIROCIN 2% OINT 22 GM TUBE ONE
[2019-05-01] MEDS ORDERED: LIDOCAINE VISC 2% SOLN 15 ML UDC ONE (12:27)
[2019-05-02] MEDS ORDERED: FLOMAX0.4 MG PO (07:23)
[2019-05-02] MEDS ORDERED: PANTOPRAZOLE SO40 MG PO (07:23)
[2019-05-02] MEDS ORDERED: PANTOPRAZOLE SO40 M1 (07:23)
[2019-05-02] MEDS ORDERED: GABAPENTIN300 MG PO (07:23)
[2019-05-02] MEDS ORDERED: LISINOPRIL10 MG PO (07:23)
[2019-05-02] MEDS ORDERED: CLONAZEPAM0.5 MG PO (07:23)
[2019-05-02] MEDS ORDERED: FUROSEMIDE20 MG (07:23)
[2019-05-02] MEDS ORDERED: ASPIRIN325 MG PO (07:23)
[2019-05-02] MEDS ORDERED: PENTOXIFYLLINE400 MG PO ×2 (07:23)
[2019-05-02] MEDS ORDERED: VITAMIN C250 MG PO (07:23)
[2019-05-02] MEDS ORDERED: BUMETANIDE2 MG (07:23)
[2019-05-02] MEDS ORDERED: ZOLPIDEM TARTRAT5 MG PO (07:23)
[2019-05-02] MEDS ORDERED: VITAMIN B-121000 MCG PO (07:23)
[2019-05-02] MEDS ORDERED: LIDOCAINE HCL 2% LOCAL 20 ML VIAL ONE (12:52)
[2019-05-02] MEDS ORDERED: HEPARIN SOD/SOD CHLORIDE 2,000 ML ONE (12:52)
[2019-05-02] MEDS ORDERED: IOPAMIDOL 300MG/ML 100 ML INFUS..BTL IV ONE (12:52)
[2019-05-02] MEDS ORDERED: SODIUM CHLORIDE 0.9% 1000ML 1,000 ML ONE (12:52)
[2019-05-02] MEDS ORDERED: MIDAZOLAM HCL 2 MG/2 ML VIAL ONE (14:19)
== END 2019-05-05 ==
LOC: WCC 11:01
PROVIDERS: ATTEND Family Medicine Adult Medicine
DX: I87.311 Chronic venous hypertension (idiopathic) with ulcer of right lower extremity (principal); L97.811 Non-pressure chronic ulcer of other part of right lower leg limited to breakdown of skin; S51.802A Unspecified open wound of left forearm, initial encounter; S51.001A Unspecified open wound of right elbow, initial encounter; I87.323 Chronic venous hypertension (idiopathic) with inflammation of bilateral lower extremity; I87.332 Chronic venous hypertension (idiopathic) with ulcer and inflammation of left lower extremity; L97.829 Non-pressure chronic ulcer of other part of left lower leg with unspecified severity; R60.0 Localized edema; I87.2 Venous insufficiency (chronic) (peripheral); R23.4 Changes in skin texture; S80.821A Blister (nonthermal), right lower leg, initial encounter; N18.3 Chronic kidney disease, stage 3 (moderate); I10 Essential (primary) hypertension; E78.00 Pure hypercholesterolemia, unspecified; G90.09 Other idiopathic peripheral autonomic neuropathy; I05.8 Other rheumatic mitral valve diseases; I48.92 Unspecified atrial flutter; I50.9 Heart failure, unspecified; W08.XXXA Fall from other furniture, initial encounter; Y83.4 Other reconstructive surgery as the cause of abnormal reaction of the patient, or of later complication, without mention of misadventure at the time of the procedure; Z74.01 Bed confinement status; Z91.81 History of falling
CPT/HCPCS: 11042; J2001; J2250; J7030; Q9967

== ENCOUNTER → 2019-05-02 | Day surgery (SDC) | payer MEDICARE, OTHER ==
[2019-04-25 13:51] LABS: BASOPHILS # (AUTO) 0.1 (0.0-0.1); BASOPHILS % 0.5 % (0.0-1.0); EOSINOPHILS # (AUTO) 0.1 (0.0-0.4); EOSINOPHILS % 1.3 % (0.0-6.0); HEMOGLOBIN 15.5 g/dL (14.0-18.0); LYMPHOCYTES # (AUTO) 1.4 (1.0-3.2); LYMPHOCYTES % 13.2 % (18.0-39.1); MEAN CORPUSCULAR HEMOGLOBIN 25.6 pg (28-32); MEAN CORPUSCULAR HGB CONC 30.4 g/dL (31-35); MEAN CORPUSCULAR VOLUME 84.3 fL (81-99); MONOCYTES # (AUTO) 1.1 (0.2-0.8); MONOCYTES % 10.6 % (4.4-11.3); NEUTROPHILS # (AUTO) 7.8 (2.1-6.9); NEUTROPHILS % 73.4 % (38.7-80.0); PLATELET COUNT 254 x10e3/uL (140-360); RED BLOOD COUNT 6.05 x10e6/uL (4.3-5.7); RED CELL DISTRIBUTION WIDTH 19.2 % (11.7-14.4)
[2019-04-25 14:03] LABS: INR 0.96; PROTHROMBIN TIME 13.4 seconds (11.9-14.5)
[2019-04-25 14:08] LABS: ALBUMIN 3.8 g/dL (3.5-5.0); ALBUMIN/GLOBULIN RATIO 1.1 (0.8-2.0); ANION GAP 12.3 mmol/L (8-16); CALCIUM 9.3 mg/dL (8.4-10.2); CREATININE, SERUM 2.17 mg/dL (0.72-1.25); POTASSIUM 4.3 mmol/L (3.5-5.1)
--- NOTE | 2019-04-25 16:00 | NUR ---
Dr. Wick notified of BUN 30,creatinine 2.17 and eGFR 32. No new orders at this time.
[~2019-05-02] VITALS: Ht 195.6 cm; Wt 145.1 kg
[2019-05-02] VITALS (13 sets, daily range): BP systolic 97–137; BP diastolic 66–84
[~2019-05-02] MED LIST changes: +ASPIRIN325 MG PO; +BUMETANIDE2 MG; +CLONAZEPAM0.5 MG PO; +CLOPIDOGREL BISULFATE 75 MG TAB ONE; +FENTANYL CITRATE/PF 100MCG/2 ML INJ ONE; +FLOMAX0.4 MG PO; +FUROSEMIDE20 MG; +GABAPENTIN300 MG PO; +HEPARIN SOD (PORCINE) 1000 UNIT/ML 30ML ONE; +HYDROCODONE/APAP 5MG-325MG TAB ONE; +MIDAZOLAM HCL 2 MG/2 ML VIAL ONE; +NITROGLYCERIN/D5W 200 MCG/ML 250 ML ONE; +PANTOPRAZOLE SO40 M1; +PANTOPRAZOLE SO40 MG PO; +PENTOXIFYLLINE400 MG PO; +VITAMIN B-121000 MCG PO; +VITAMIN C250 MG PO; +ZOLPIDEM TARTRAT5 MG PO
--- OUTSIDE RECORDS SUMMARY | 2019-05-02 06:42 | XMS REPORT ---
Author Author [facility] Address Unknown Phone Unavailable Care Team Providers Care Registered Respiratory Technician Name Role Phone MONICA RIOS Unavailable Unavailable Problems This patient has no known problems. Allergies, Adverse Reactions, Alerts This patient has no known allergies or adverse reactions. Medications This patient has no known medications. Encounters Start Date/Time End Date/Time Encounter Type Admission Type Attending [facility] Care Department Encounter ID 2018-10-02 05:26:00 Inpatient [facility] [id number] 2019-02-01 05:06:00 2019-02-01 05:06:00 Emergency [facility] [id number] 2018-09-14 12:04:00 2018-09-14 12:04:00 Outpatient [facility] [id number] 2018-07-12 12:53:00 2018-07-12 12:53:00 Outpatient [facility] [id number] 2018-07-04 07:38:00 2018-07-04 07:38:00 Outpatient [facility] [id number] Results Test Description Test Time Test Comments Text Results Atomic Results Result Comments US RENAL RETROPERITONEAL COMP [place] [address] Patient Name: KEV KINGSTON MR #: [id number] : 1965 Age/Sex: 52/M Req #: [id number] Adm Physician: MONICA RIOS MD Ordered by: LITA TEJEDA MD Report #: [id number] Location: MED[facility]URG [facility] Procedure: [id number] US/US RENAL RETROPERITONEAL COMP Exam Date: Exam Time: REPORT STATUS: Signed PROCEDURE: US RETROPERITONEAL ( KIDNEY ). COMPARISON: None. INDICATIONS: CKD TECHNIQUE: Santiago-scale and color sonographic images of the bilateral kidneys and bladder where obtained in transverse and longitudinal planes. FINDINGS: RIGHT KIDNEY: 10.8 cm in length, cortical thickness 2.3 cm Cysts: None Solid masses: None Stones: None Hydronephrosis: None Echogenicity: Normal renal cortical echogenicity. LEFT KIDNEY: 11.8 cm in length, cortical thickness 2.1 cm Cysts: None Solid masses: None Stones: None Hydronephrosis: None Echogenicity: Normal renal cortical echogenicity. Bladder: Unremarkable. Right and left ureteral jets are identified. Prostate: 2.5 x 2.6 x 3.4 cm. Estimated volume 11.8 cc Incidental note of a small splenule adjacent to the spleen, measuring 1.8 cm in diameter. CONCLUSION: Unremarkable sonographic appearance of the kidneys. Dictated by: Sherice Ch M.D. on 03/28/2017 at 11:09 Electronically approved by: Sherice Ch M.D. on 03/28/2017 at 11:09 Dictated By: SHERICE CH MD 08 Transcribed By: NAKUL on 03/28/171108 COPY TO: LITA TEJEDA MD CT BRAIN [place] [address] Patient Name: KEV KINGSTON MR #: [id number] : 1965 Age/Sex: 52/M Req #: [id number] Adm Physician: Ordered by: RADHA MONTERO MD Report #: [id number] Location: Room/Bed: Procedure: [id number] CT/CT BRAIN WO Exam Date: 03/27/17 Exam Time: 0515 REPORT STATUS: Signed History: Fell in shower Comparison studies:None Technique: Axial images were obtained from the brain, face and cervical spine. Coronal and sagittal reconstructions obtained from the axial data. Intravenous contrast: None Findings: Head CT: Scalp/skull: No abnormalities. No fractures, blastic or lytic lesions. Extra-axial spaces: No masses. No fluid collections. Brain sulci: Appropriate for age. Ventricles: Normal in size and configuration. No hydrocephalus. Parenchyma: No abnormal densities. No masses, hemorrhage, acute or chronic cortical vascular insults. Sellar/suprasellar region: No abnormalities Craniocervical junction: Patent foramen magnum. No Chiari one malformation. Opacification of the bilateral left more than right mastoid air cells. Maxillofacial CT: Soft tissues: No abnormalities.. Bones: No fractures or bony abnormalities. . Orbits: No abnormalities. Paranasal sinuses: Clear. Cervical spine CT: Fractures: None. Soft tissues: No gross abnormalities. Atlantoaxial articulation: Intact. Alignment: Normal lordosis. No scoliosis. Cervicomedullary junction: No abnormalities. The foramen magnum is patent. Vertebrae: No infection or neoplasm. Degenerative changes: Patent canal and foramina. Incidental findings: none. Impression: Head CT: 1. No acute abnormality. 2. Nons pecific opacification of the left more than right mastoid air cells . Facial CT: 1. No acute abnormality. Cervical spine CT: 1. No cervical abnormalities. 2. Cannot exclude ligament, spinal cord and or vascular abnormalities on the basis of this examination. Signed by: DR Arash Logan M.D. on 03/27/2017 6:24 AM Dictated By: ARASH LOGAN MD 3 Transcribed By: SHREYAS on 03/27/17623 COPY TO: RADHA MONTERO MD CT MAXIO FAC/ALYSON WO [place] [address] Patient Name: KEV KINGSTON MR #: [id number] : 1965 Age/Sex: 52/M [facility] #: [id number] Req #: [id number] [facility] Physician: Ordered by: RADHA MONTERO MD Report #: [id number] Location: Room/Bed: Procedure: [id number] CT/CT MAXIO FAC/PARANAS WO Exam Date: 03/27/17 Exam Time: 514 REPORT STATUS: Signed History: Fell in shower Comparison studies:None Technique: Axial images were obtained from the brain, face and cervical spine. Coronal and sagittal reconstructions obtained from the axial data. Intravenous contrast: None Findings: Head CT: Scalp/skull: No abnormalities. No fractures, blastic or lytic lesions. Extra-axial spaces: No masses. No fluid collections. Brain sulci: Appropriate for age. Ventricles: Normal in size and configuration. No hydrocephalus. Parenchyma: No abnormal densities. No masses, hemorrhage, acute or chronic cortical vascular insults. Sellar/suprasellar region: No abnormalities Craniocervical junction: Patent foramen magnum. No Chiari one malformation. Opacification of the bilateral left more than right mastoid air cells. Maxillofacial CT: Soft tissues: No abnormalities.. Bones: No fractures or bony abnormalities. . Orbits: No abnormalities. Paranasal sinuses: Clear. Cervical spine CT: Fractures: None. Soft tissues: No gross abnormalities. Atlantoaxial articulation: Intact. Alignment: Normal lordosis. No scoliosis. Cervicomedullary junction: No abnormalities. The foramen magnum is patent. Vertebrae: No infection or neoplasm. Degenerative changes: Patent canal and foramina. Incidental findings: none. Impression: Head CT: 1. No acute abnormality. 2. Nonspecific opacification of the left more than right mastoid air cells . Facial CT: 1. No acute abnormality. Cervical spine CT: 1. No cervical abnormalities. 2. Cannot exclude ligament, spinal cord and or vascular abnormalities on the basis of this examination. Signed by: DR Arash Logan M.D. on 03/27/2017 6:24 AM Dictated By: ARASH APPLE MD 3 Transcribed By: SHREYAS on 03/27/17623 COPY TO: RADHA MONTERO MD CT CERVICAL SPINE WO [place] [address] Patient Name: KEV KINGSTON MR #: [id number] : 1965 Age/Sex: 52/M Req #: [id number] Adm Physician: Ordered by: RADHA MONTERO MD Report #: [id number] Location: ER Room/Bed: Procedure: [id number] CT/CT CERVICAL SPINE WO Exam Date: 03/27/17 Exam Time: 0515 REPORT STATUS: Signed History: Fell in shower Comparison studies:None Technique: Axial images were obtained from the brain, face and cervical spine. Coronal and sagittal reconstructions obtained from the axial data. Intravenous contrast: None Findings: Head CT: Scalp/skull: No abnormalities. No fractures, blastic or lytic lesions. Extra-axial spaces: No masses. No fluid collections. Brain sulci: Appropriate for age. Ventricles: Normal in size and configuration. No hydrocephalus. Parenchyma: No abnormal densities. No masses, hemorrhage, acute or chronic cortical vascular insults. Sellar/suprasellar region: No abnormalities Craniocervical junction: Patent foramen magnum. No Chiari one malformation. Opacification of the bilateral left more than right mastoid air cells. Maxillofacial CT: Soft tissues: No abnormalities.. Bones: No fractures or bony abnormalities. . Orbits: No abnormalities. Paranasal sinuses: Clear. Cervical spine CT: Fractures: None. Soft tissues: No gross abnormalities. Atlantoaxial articulation: Intact. Alignment: Normal lordosis. No scoliosis. Cervicomedullary junction: No abnormalities. The foramen magnum is patent. Vertebrae: No infection or neoplasm. Degenerative changes: Patent canal and foramina. Incidental findings: none. Impression: Head CT: 1. No acute abnormality. 2. Nonspecific opacification of the left more than right mastoid air cells . Facial CT: 1. No acute abnormality. Cervical spine CT: 1. No cervical abnormalities. 2. Cannot exclude ligament, spinal cord and or vascular abnormalities on the basis of this examination. Signed by: DR Arash Logan M.D. on 03/27/2017 6:24 AM Dictated By: ARASH LOGAN MD 3 Transcribed By: SHREYAS on 03/27/17623 COPY TO: RADHA MONTERO MD PELVIS AP 1-2 VIEWS [place] [address] Patient Name: KEV KINGSTON MR #: [id number] : 1965 Age/Sex: 52/M Req #: [id number] Adm Physician: Ordered by: RADHA MONTERO MD Report #: [id number] Location: ER Room/Bed: Procedure: [id number] DX/PELVIS AP 1-2 VIEWS Exam Date: 03/27/17 Exam Time: 0535 REPORT STATUS: Signed PELVIS AP 1-2 VIEWS HISTORY: Status post fall, pain COMPARISON: None FINDINGS: Bones: No displaced fracture. Osseous alignment is within normal limits. Joints: The joint spaces are well-maintained. Soft tissues: The soft tissues appear unremarkable. IMPRESSION: No acute radiographic abnormality. Signed by: Dr. Facundo Ward M.D. on 03/27/2017 6:45 AM Dictated By: FACUNDO BENNETT MD 4 Transcribed By: SHREYAS on 03/27/1745 COPY TO: RADHA MONTERO MD CHEST SINGLE (PORTABLE) [place] [address] Patient Name: KEV KINGSTON MR #: [id number] : 1965 Age/Sex: 52/M Req #: [id number] Adm Physician: Ordered by: RADHA MONTERO MD Report #: [id number] Location: ER Room/Bed: Procedure: [id number] DX/CHEST SINGLE (PORTABLE) Exam Date: 03/27/17 Exam Time: 0535 REPORT STATUS: Signed EXAMINATION: CHEST SINGLE (PORTABLE) INDICATION: Status post fall, syncope COMPARISON: None FINDINGS: TUBES and LINES: None. LUNGS: Lungs are well inflated. Lungs are clear. There is no evidence of pneumonia or pulmonary edema. PLEURA: No pleural effusion or pneumothorax. HEART AND MEDIASTINUM: The cardiomediastinal silhouette is unremarkable. BONES AND SOFT TISSUES: No acute osseous lesion. Postsurgical changes related to prior resection of the lateral right clavicle. Soft tissues are unremarkable. UPPER ABDOMEN: No free air under the diaphragm. IMPRESSION: No acute thoracic abnormality. Signed by: Dr. Facundo Ward M.D. on 03/27/2017 6:45 AM Dictated By: FACUNDO BENNETT MD 4 Transcribed By: SHREYAS on 03/27/17644 COPY TO: RADHA MONTERO MD FEMUR 2 VIEWS MINIMUM LEFT [place] [address] Patient Name: KEV KINGSTON MR #: [id number] : 1965 Age/Sex: 52/M Req #: [id number] Adm Physician: Ordered by: RADHA MONTERO MD Report #: [id number] Location: ER Room/Bed: Procedure: [id number] DX/FEMUR 2 VIEWS MINIMUM LEFT Exam Date: Exam Time: REPORT STATUS: Signed FEMUR 2 VIEWS MINIMUM LEFT HISTORY: Status post fall, left side pain COMPARISON: None FINDINGS: Bones: No displaced fracture. Osseous alignment is within normal limits. Joints: There are calcifications in the distribution of the menisci compatible with CPPD arthropathy. Soft tissues: Soft tissue calcifications in the left gluteal region and muscular structures of the left thigh. IMPRESSION: 1. CPPD arthropathy of the left knee. 2. No acute osseous abnormalities. Signed by: Dr. Facundo Ward M.D. on 03/27/2017 6:46 AM Dictated By: FACUNDO BENNETT MD 5 Transcribed By: SHREYAS on 03/27/17645 COPY TO: RADHA MONTERO MD
--- OUTSIDE RECORDS SUMMARY | 2019-05-02 06:42 | XMS REPORT | Summary of Care ---
Author Author HANNY Bryant, KEYONA Organization Unknown Address Unknown Phone Unavailable Care Team Providers Care Auto Cleaner Name Role Phone HANNY Bryant, KEYONA Unavailable Unavailable LETICIA Bryant, MITCHEL Unavailable Unavailable LOUISA Bryant, NENA Unavailable Unavailable NAMRATA P.A., CHER Unavailable Unavailable REJI JUNE, MARILYN CHIOMA Unavailable Unavailable LETICIA VALERA, MITCHEL Unavailable Unavailable DAVID VALERA, GÓMEZ Aragon Unavailable Unavailable Geoffrey Iglesias MD, Keyona Unavailable Unavailable LOUISA VALERA, NENA Hdz Unavailable Unavailable Unavailable Unavailable Functional Status Name Dates Details Functional status health issues are not documented Status: Name Dates Details Cognitive status health issues are not documented Status: Problems Name Dates Details Tremor (781.0, R25.1) Status: Active Spinal cord compression (336.9, G95.20) Status: Active Fainting (780.2, R55) Status: Active Excessive falling (V15.88, R29.6) Status: Active Transient cerebral ischemic attack (435.9, G45.9) Status: Active Mitral valve insufficiency, unspecified etiology (424.0, I34.0) Status: Active Status post thoracic spinal fusion (V45.4, Z98.1) Status: Active Spinal stenosis at L4-L5 level (724.02, M48.061) Status: Active Thoracic myelopathy (721.41, M47.14) Status: Active Displacement of thoracic intervertebral disc with myelopathy (722.72, M51.04) Status: Active Myelomalacia (336.8, G95.89) Status: Active Low back pain (724.2, M54.5) Status: Active Stroke (434.91, I63.9) Status: Active History of claustrophobia (V11.8, Z86.59) Status: Active Myopathy (359.9, G72.9) Status: Active Peripheral vascular disease (443.9, I73.9) Status: Active Neuropathy (355.9, G62.9) Status: Active Medications Name Dates Details Klor-Con 10 10 MEQ Oral Tablet Extended Release Active Amiodarone HCl TABS * Refills: 0 Active Metoprolol Tartrate 75 MG Oral Tablet TAKE 25 MG IN AM AND 50MG IN PM * Refills: 0 Active Pantoprazole Sodium 40 MG Oral Tablet Delayed Release * Refills: 0 Active Isosorbide Dinitrate TABS * Refills: 0 Active Bumetanide TABS * Refills: 0 Active Tamsulosin HCl - 0.4 MG Oral Capsule * Refills: 0 Active clonazePAM 0.5 MG Oral Tablet TAKE 1 TABLET BY MOUTH EVERY 12 HOURS * Quantity: 60 Refills: 0 KEYONA GAMINO M.D. * Start : 29-Aug-2017 Active diazePAM 5 MG Oral Tablet TAKE 1 TABLET 30 MINUTES PRIOR TO PROCEDURE, AND ONE MORE IF NEEDED RIGHT BEFOR E PROCEDURE * Quantity: 2 Refills: 0 MITCHEL KELLY M.D. * Start : 23-Mar-2018 Active diazePAM 5 MG Oral Tablet Take 1 PO 30 minutes prior to procedure and 1 PO just before procedure * Quantity: 2 Refills: 0 LOUISA Bryant, NENA * Start : 19-Apr-2018 Active Cyclobenzaprine HCl - 5 MG Oral Tablet TAKE 1 TABLET 3 TIMES DAILY PRN muscle spasm * Quantity: 40 Refills: 0 NAMRATA P.A., CHER * Start : 17-Oct-2018 Active Acetaminophen-Codeine #3 300-30 MG Oral Tablet TAKE 1 TABLET EVERY 4 TO 6 HOURS NEEDED FOR PAIN. * Quantity: 30 Refills: 0 NAMRATA P.A., CHER * Start : 15-Sep-2018 Active Acetaminophen-Codeine #3 300-30 MG Oral Tablet TAKE 1 TABLET EVERY 6 HOURS NEEDED. * Quantity: 56 Refills: 0 LOUISA Bryant, NENA * Start : 07-Nov-2018 Active Cyclobenzaprine HCl - 5 MG Oral Tablet TAKE 1 TABLET 3 TIMES DAILY PRN muscle spasm * Quantity: 40 Refills: 0 LOUISA Bryant, NENA * Start : 07-Nov-2018 Active Allergies and Adverse Reactions Name Dates Details Sulfa Drugs (Allergy) Status: Active Past Medical History Name Dates Details History of atrial fibrillation (V12.59, Z86.79) Status: Resolved History of CKD (chronic kidney disease), stage IV (585.4, N18.4) Status: Resolved History of essential hypertension (V12.59, Z86.79) Status: Resolved History of hyperlipidemia (V12.29, Z86.39) Status: Resolved History of AR (myocardial infarction) (412, I25.2) Status: Resolved Procedures Procedure Dates Details Physical Therapy Date: 20-Dec-2018 History of Hand surgery Completed History of Shoulder surgery Completed History of Knee surgery Completed Immunization Name Dates Details Immunizations not documented Family History Name Dates Details No pertinent family history (V49.89, Z78.9) Status: Active Name Dates Details No pertinent family history (V49.89, Z78.9) Status: Active Social History Name Dates Details Unknown if ever smoked Vital Signs Date Test Result Details No Known Vitals to report Results Date Description Value Details Results not documented Plan of Care Name Dates Details Planned Observations Planned Goals not documented Planned Encounters Appointment; NENA JASSO M.D. On: 06-Feb-2019 10:15 Appointment; KEYONA GAMINO M.D. On: 10-May-2019 10:00 Interventions Provided Medication Changes* clonazePAM 0.5 MG Oral Tablet - Renew Instructions Name Dates Details Instructions not documented Encounters Appointment; BILL CORREIA M.D. Encounter Diagnosis: Problem not documented On: 15-Jul-2017 10:45 Appointment; KEYONA GAMINO M.D. Encounter Diagnosis: Problem not documented On: 29-Aug-2017 10:30 Appointment; KEYONA GAMINO M.D. Encounter Diagnosis: Problem not documented On: 05-Sep-2017 10:00 Appointment; KEYONA GAMINO M.D. Encounter Diagnosis: Problem not documented On: 17-Nov-2017 10:00 Appointment; MITCHEL KELLY M.D. Encounter Diagnosis: Problem not documented On: 09-Jan-2018 15:00 Appointment; KEYONA GAMINO M.D. Encounter Diagnosis: Problem not documented On: 16-Jan-2018 15:00 Appointment; MITCHEL KELLY M.D. Encounter Diagnosis: Problem not documented On: 23-Mar-2018 15:00 Appointment; NENA JASSO M.D. Encounter Diagnosis: Problem not documented On: 18-Apr-2018 13:00 Appointment; NENA JASSO M.D. Encounter Diagnosis: Problem not documented On: 11-Jul-2018 9:45 Appointment; KEYONA GAMINO M.D. Encounter Diagnosis: Problem not documented On: 03-Aug-2018 16:00 Appointment; NENA JASSO M.D. Encounter Diagnosis: Problem not documented On: 02-Oct-2018 7:00 Appointment; CHER OTT P.A. Encounter Diagnosis: Problem not documented On: 17-Oct-2018 8:30 Appointment; NENA JASSO M.D. Encounter Diagnosis: Problem not documented On: 07-Nov-2018 10:15 Appointment; LAURYN EASTON M.D. Encounter Diagnosis: Problem not documented On: 10-Nov-2018 8:30 Appointment; LAURYN EASTON M.D. Encounter Diagnosis: Problem not documented On: 08-Dec-2018 10:00
--- NOTE | 2019-05-02 14:30 | NUR ---
1430pm Received pt to room #9.Identifierx2.bedside report received from KRISTYN Ngo. Alert oriented and appropriate, PERRLA, respirations even and unlabored to room air. Pulses x4 extremities equal and strong. Pedal pulses PT/DP left leg / unable to palpate to rt leg wrapped with Coban. Spoke with Md. Ok to pull sheaths in one hour ,Hold each for 15min ACT, parameters not required. Skin warm and dry integrity appears D/I. IV 20g to left and presents healthy w/o s/s of infiltration or complaint. Abdomen soft and supple. pt offered toileting, denies need to urinate or defecate. No personal affects with patient. Family at bedside. Pt and family verbalizes understanding of POC. DC instructions given to . Currently w/o complaint of pain or need. Bilateral sheaths in place no gross issues pain,pallor,pressure or dysrhythmia. aries Addendum: 05/02/19 at 1816 by Kate Banerjee RN Iv is infusing at 250hr per md orders . aries
--- NOTE | 2019-05-02 16:05 | NUR ---
1605p Don BINDERY OPERATOR at bedside pulled sheaths held 15min total with stasis to bilateral femoral sites. No gross issues pain pallor pressure or dysrhythmia.Tegaderm and 4x4 applied per Don BINDERY OPERATOR. Left PP x2 present. Unable to palpate rt pp due to dressing from wound center.Waffle lair mattress inflated and remains in place. medicated Narco 325/5 x1 po per pt c/o back discomfort from long down time. 10/14. ds/rn
--- NOTE | 2019-05-02 18:00 | NUR ---
1800p pt sitting up w/o complaints states back pain better Stasis remain intact to bilateral venous sheath sites No gross issues pain pallor pressure or dysrhythmia. Dressing and ready for dc home. dc/rn
--- NOTE | 2019-05-02 18:10 | NUR ---
1810Pt meets DC criteria. Bilateral femoral sites assessed for s/s of complication and presence of hematoma. Sklin warm, dry, no discolor, and pulses present. IV removed from left hand. Distal tip appears intact. VS WNL. Pt denies pain, sob, or need at this time. Family at at bedside. Review of discharge paperwork and follow up instructions. verbalized understanding. Pt to wheelchair and transported to front of hospital. Transferred to private vehicle under own strength w/o incident with DC paperwork in hand. -ds/rn
--- NOTE | 2019-05-02 23:00 | Operative Report ---
DATE OF PROCEDURE: 05/02/2019 SURGEON: Jose Wick MD INDICATION FOR PROCEDURE: Venous ulcers and venous insufficiency. The preprocedure assessment, the risks, benefits, and alternatives to surgery were explained to the patient prior to the procedure. Informed consent was obtained and documented in the medical record. The patient was deemed to be an appropriate candidate for moderate sedation. PROCEDURES PERFORMED: 1. Bilateral venogram of bilateral common femoral and common iliac arteries. 2. Intravascular ultrasound of bilateral iliac and common femoral veins. 3. Venous stenting of left common iliac vein. 4. Moderate sedation time 60 minutes. PROCEDURE IN DETAIL: The patient was brought to the cardiac catheterization laboratory in a fasting state. Bilateral groins were prepped and draped in a sterile fashion. A 10-Malian sheath was inserted in bilateral common femoral veins under ultrasound guided and using modified Seldinger technique without any complications. Bilateral venogram was performed by injecting 20 mL of 50:50 contrast in bilateral lower extremities. Intravascular ultrasound of bilateral venous systems was performed. This demonstrated 45% stenosis of right common iliac vein and a 57 stenosis of the left common iliac vein with disease all the way up to the ostium of the left common iliac vein. Given severe venous insufficiency and ulcerations, we decided to proceed with venous stenting. IVUS measurements were obtained and Venovo venous stent was deployed in the left common iliac vein. Post IVUS was performed and demonstrated excellent and stent expansion and apposition. The patient tolerated the procedure well. All catheters were advanced over wire. All wires were removed and sheath was sutured in place. Final ACT was 288 after administration of 14,000 units heparin at the beginning of the procedure. The patient was taken to the holding area. Sheath will be removed with manual compression once ACT is less than 200 in the holding area. Aspirin and Plavix were loaded in the optical lab technician. SIGNIFICANT FINDINGS: 57% stenosis of left common iliac, 43% stenosis of right common iliac. Successful venous stenting of the left common iliac artery with Venovo stent. GRAFTS AND IMPLANTS: None. SPECIMEN REMOVED: None. ESTIMATED BLOOD LOSS: 10 mL. COMPLICATIONS: None. FINAL RECOMMENDATIONS: 1. Aspirin 81 mg daily for life. Plavix 75 mg daily for 3 months. 2. Continue wound care for lower extremities venous ulcerations. 3. Follow up in clinic 2 weeks post procedure. MD SOPHIA Michelle/FLOR /[id number]
== END | disposition home or self-care (01) ==
LOC: CATH LAB 06:37 → EDSTATUS 08:00
PROVIDERS: ATTEND Internal Medicine
DX: I87.2 Venous insufficiency (chronic) (peripheral) (principal); R60.9 Edema, unspecified; I25.2 Old myocardial infarction; I10 Essential (primary) hypertension; E78.00 Pure hypercholesterolemia, unspecified; L97.919 Non-pressure chronic ulcer of unspecified part of right lower leg with unspecified severity; I87.331 Chronic venous hypertension (idiopathic) with ulcer and inflammation of right lower extremity; Z86.79 Personal history of other diseases of the circulatory system; I20.8 Other forms of angina pectoris; R29.6 Repeated falls; I34.0 Nonrheumatic mitral (valve) insufficiency; Z82.3 Family history of stroke; Z82.49 Family history of ischemic heart disease and other diseases of the circulatory system
CPT/HCPCS: 36415; 37238; 37252; 75822; 76937; 80053; 85025; 85610; C1766; C1769; C1876; J1644; J2250; J3010; 36010; 37253; 99152; 99153

== ENCOUNTER 2019-08-28 11:47 | Outpatient (RCR) | payer MEDICARE, OTHER ==
[~2019-08-28 11:47] MED LIST changes: -CLOPIDOGREL BISULFATE 75 MG TAB ONE; -FENTANYL CITRATE/PF 100MCG/2 ML INJ ONE; -HEPARIN SOD (PORCINE) 1000 UNIT/ML 30ML ONE; -HYDROCODONE/APAP 5MG-325MG TAB ONE; -MIDAZOLAM HCL 2 MG/2 ML VIAL ONE; -NITROGLYCERIN/D5W 200 MCG/ML 250 ML ONE
[2019-08-28] MEDS ORDERED: LIDOCAINE/PRILOCAINE 2.5-2.5% KIT ONE (14:51)
== END 2019-09-04 ==
LOC: WCC 11:47
PROVIDERS: ATTEND Family Medicine Adult Medicine
DX: I87.311 Chronic venous hypertension (idiopathic) with ulcer of right lower extremity (principal); I87.332 Chronic venous hypertension (idiopathic) with ulcer and inflammation of left lower extremity; I87.312 Chronic venous hypertension (idiopathic) with ulcer of left lower extremity; L97.811 Non-pressure chronic ulcer of other part of right lower leg limited to breakdown of skin; L97.829 Non-pressure chronic ulcer of other part of left lower leg with unspecified severity; S51.802A Unspecified open wound of left forearm, initial encounter; S51.001A Unspecified open wound of right elbow, initial encounter; Y83.4 Other reconstructive surgery as the cause of abnormal reaction of the patient, or of later complication, without mention of misadventure at the time of the procedure; I87.2 Venous insufficiency (chronic) (peripheral); S80.821A Blister (nonthermal), right lower leg, initial encounter; R60.0 Localized edema; R23.4 Changes in skin texture; N18.3 Chronic kidney disease, stage 3 (moderate); I10 Essential (primary) hypertension; E78.00 Pure hypercholesterolemia, unspecified; G90.09 Other idiopathic peripheral autonomic neuropathy; I05.8 Other rheumatic mitral valve diseases; I48.92 Unspecified atrial flutter; I50.9 Heart failure, unspecified; W08.XXXA Fall from other furniture, initial encounter; Z91.81 History of falling

== ENCOUNTER 2019-09-06 11:08 | Outpatient (RCR) | payer MEDICARE, OTHER ==
[2019-09-06] MEDS ORDERED: MINERAL OIL/PETROLAT/GLYCERI 6OZ BTL ONE (14:22)
[2019-09-06] MEDS ORDERED: FLUOCINONIDE 0.05% 1 EA/15 GM TUBE ONE (14:22)
[2019-09-06] MEDS ORDERED: LIDOCAINE/PRILOCAINE 2.5-2.5% KIT ONE (14:22)
== END 2019-10-05 ==
LOC: WCC 11:08
PROVIDERS: ATTEND Family Medicine Adult Medicine
DX: S81.801A Unspecified open wound, right lower leg, initial encounter (principal); Y83.4 Other reconstructive surgery as the cause of abnormal reaction of the patient, or of later complication, without mention of misadventure at the time of the procedure; I87.332 Chronic venous hypertension (idiopathic) with ulcer and inflammation of left lower extremity; I87.312 Chronic venous hypertension (idiopathic) with ulcer of left lower extremity; I87.311 Chronic venous hypertension (idiopathic) with ulcer of right lower extremity; I87.323 Chronic venous hypertension (idiopathic) with inflammation of bilateral lower extremity; L97.811 Non-pressure chronic ulcer of other part of right lower leg limited to breakdown of skin; L97.829 Non-pressure chronic ulcer of other part of left lower leg with unspecified severity; I87.2 Venous insufficiency (chronic) (peripheral); S80.821A Blister (nonthermal), right lower leg, initial encounter; R60.0 Localized edema; E78.00 Pure hypercholesterolemia, unspecified; G90.09 Other idiopathic peripheral autonomic neuropathy; I10 Essential (primary) hypertension; I05.8 Other rheumatic mitral valve diseases; I48.92 Unspecified atrial flutter; I50.9 Heart failure, unspecified; W08.XXXA Fall from other furniture, initial encounter; Z74.01 Bed confinement status; Z91.81 History of falling